=== PATIENT | female | born 1990 | race Hispanic/Latino ===

== ENCOUNTER 2017-02-03 09:56 | Emergency (ER) | payer OTHER ==
[2017-02-03 10:03] VITALS: BP 145/91; PULSE 90; RESP 16; TEMP 98.6; O2SAT 100
--- NOTE | 2017-02-03 10:36 | C.PDOC ---
History Of Present Illness 26 yr old female presents to the ER s/p needle stick. 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 Patient denies fever, chills, nausea, vomiting, weakness or numbness. Time Seen by Provider: 02/03/17 10:08 Chief Complaint (Nursing): Needle Stick History Per: Patient History/Exam Limitations: no limitations Onset/Duration Of Symptoms: Sudden Onset (MANAGED CARE LIAISON) Past Medical History Reviewed: Historical Data, Nursing Documentation, Vital Signs Vital Signs: Last Vital Signs Temp 98.6 F 02/03/17 10:00 Pulse 90 02/03/17 10:00 Resp 16 02/03/17 10:00 BP 145/91 H 02/03/17 10:00 Pulse Ox 100 02/03/17 13:09 Family History: States: No Known Family Hx - Social History Hx Alcohol Use: Yes Hx Substance Use: No - Immunization History Hx Tetanus Toxoid Vaccination: Yes Review Of Systems Except As Marked, All Systems Reviewed And Found Negative. Constitutional: Negative for: Fever, Chills Gastrointestinal: Negative for: Nausea, Vomiting Neurological: Negative for: Weakness, Numbness Physical Exam - Physical Exam Appears: Non-toxic Skin: Normal Color, Warm, Dry Head: Atraumatic, Normacephalic Chest: Symmetrical, No Tenderness Cardiovascular: Rhythm Regular, No Murmur Respiratory: Normal Breath Sounds, No Rales, No Rhonchi, No Stridor, No Wheezing Extremity: Normal ROM, No Swelling Neurological/Psych: Oriented x3, Normal Speech, Normal Motor ED Course And Treatment - Laboratory Results Result Diagrams: 02/03/17 10:55 02/03/17 10:55 O2 Sat by Pulse Oximetry: 100 (RA) Pulse Ox Interpretation: Normal Progress Note: Source patient is being tested. Patient is UTD on tetanus. Refuses PEP kit at this time. Medical Decision Making Medical Decision Making: PLAN: * Hepatitis Panel * HIV Antibody * CBC * CMP * HCG * Urinalysis Disposition - Disposition Disposition: HOME/ ROUTINE Disposition Time: 10:40 Condition: GOOD Additional Instructions: Thank you for letting us take care of you today. Your provider was Dr. Johnson. You were treated for a needle stick. The emergency medical care you received today was directed at your acute symptoms. If you were prescribed any medication, please fill it and take as directed. It may take several days for your symptoms to resolve. Return to the Emergency Department if your symptoms worsen, do not improve, or if you have any other problems. Please contact your doctor or call one of the physicians/clinics you have been referred to that are listed on the Patient Visit Information form that is included in your discharge packet. Bring any paperwork you were given at discharge with you along with any medications you are taking to your follow up visit. Our treatment cannot replace ongoing medical care by a primary care provider (PCP) outside of the emergency department. Thank you for allowing the [facility] team to be part of your care today. Come to the emergency room if you change your mind about post-exposure prophylaxis. Follow up in [facility] tomorrow morning. Instructions: Needle Stick Injuries (ED) Forms: [employer] (Vincentian) - Clinical Impression Clinical Impression: Needle stick injury - Scribe Statement The provider has reviewed the documentation as recorded by the Prakeribe Henrietta Rubio Provider Attestation: All medical record entries made by the Scribe were at my direction and personally dictated by me. I have reviewed the chart and agree that the record accurately reflects my personal performance of the history, physical exam, medical decision making, and the department course for this patient. I have also personally directed, reviewed, and agree with the discharge instructions and disposition.
[2017-02-03 11:04] LABS: BASO # 0.1 K/uL (0.0-0.2); BASO % 0.7 % (0.0-2.0); EOS # 0.2 K/uL (0.0-0.7); EOS % 1.9 % (0.0-4.0); HEMATOCRIT 41.5 % (34.0-47.0); LYMPH # 2.2 K/uL (1.0-4.3); LYMPH % 27.1 % (20.0-40.0); MEAN CELL VOLUME 87.1 fL (81.0-99.0); MEAN CORPUSCULAR HEMOGLOBIN 29.3 pg (27.0-31.0); MEAN CORPUSCULAR HGB CONC 33.7 g/dL (33.0-37.0); MEAN PLATELET VOLUME 10.1 fL (7.2-11.7); MONO # 0.6 K/uL (0.0-0.8); MONO % 7.2 % (0.0-10.0); RED CELL DISTRIBUTION WIDTH 12.8 % (11.5-14.5)
[2017-02-03 11:11] LABS: RBC URINE < 1 /hpf (0-3); URINE BILIRUBIN NEGATIVE (NEGATIVE); URINE BLOOD NEGATIVE (NEGATIVE); URINE COLOR Yellow (YELLOW); URINE GLUCOSE (UA) NORMAL (Normal); URINE KETONE NEGATIVE (NEGATIVE); URINE LEUKOCYTE ESTERASE NEG Leu/uL (Negative); URINE PROTEIN NEGATIVE (NEGATIVE); URINE UROBILINOGEN NORMAL mg/dL (0.2-1.0); WBC URINE < 1 /hpf (0-5)
[2017-02-03 11:19] LABS: CHLORIDE 100 mmol/L (98-107); POTASSIUM 4.2 mmol/L (3.6-5.2); SODIUM 139 mmol/L (132-148)
[2017-02-03 11:21] LABS: AMYLASE 59 U/L (30-110); CARBON DIOXIDE 22 mmol/L (22-30); GFR AFRICAN-AMERICAN > 60
[2017-02-03 11:22] LABS: ALB/GLOB RATIO 1.2 (1.0-2.1); ALKALINE PHOSPHATASE 133 U/L (38-126); ALT/SGPT 32 U/L (9-52); AST/SGOT 23 U/L (14-36); BILIRUBIN,TOTAL 0.5 mg/dL (0.2-1.3); BLOOD UREA NITROGEN 10 mg/dL (7-17); CALCIUM 9.2 mg/dl (8.6-10.4); GLUCOSE,RANDOM 82 mg/dL (65-105); TOTAL PROTEIN 8.3 g/dL (6.3-8.3)
== END 2017-02-03 11:41 | disposition home or self-care (01) ==
LOC: C.ER 09:56
DX: S61.432A Puncture wound without foreign body of left hand, initial encounter (principal); W46.0XXA Contact with hypodermic needle, initial encounter; Y93.89 Activity, other specified; Y92.239 Unspecified place in hospital as the place of occurrence of the external cause; Y99.0 Civilian activity done for income or pay

== ENCOUNTER 2017-10-27 09:38 | Emergency (ER) | payer OTHER ==
[2017-10-27 09:57] VITALS: BP 116/72; PULSE 78; RESP 16; TEMP 98.1; O2SAT 99
--- NOTE | 2017-10-27 10:05 | C.PDOC ---
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 PS INJECTED PATIENT UPSTAIRS, THEN ACCID NEEDLE WENT UNDER R 2ND FINGERNAIL. CO MILD PAIN TO AREA. NO DOCUMENTED HIV OR HEP STATUS OF INPT. DENIES OTHER ASSOC SX/INJURY EXAM NAD EXT R HAND: +1 CM LINEAR SUBUNGUAL HEMORRHAGE 2ND FINGER. NAIL INTACT. NO FINGER DEFORM. NEURO NO FOCAL DEF REMAINDER NEG PT: [id number] Time Seen by Provider: 10/27/17 09:58 Chief Complaint (Nursing): Needle Stick History Per: Patient History/Exam Limitations: no limitations Current Symptoms Are (Timing): Still Present Past Medical History Reviewed: Historical Data, Nursing Documentation, Vital Signs Vital Signs: Last Vital Signs Temp 98.1 F 10/27/17 09:43 Pulse 78 10/27/17 09:43 Resp 16 10/27/17 09:43 BP 116/72 10/27/17 09:43 Pulse Ox 99 10/27/17 10:07 Family History: States: No Known Family Hx - Social History Hx Alcohol Use: Yes Hx Substance Use: No - Immunization History Hx Tetanus Toxoid Vaccination: Yes Review Of Systems Constitutional: Negative for: Chills, Malaise Respiratory: Negative for: Cough, Shortness of Breath Gastrointestinal: Negative for: Vomiting Skin: Negative for: Rash Neurological: Negative for: Weakness, Numbness Physical Exam - Physical Exam Appears: Well, Non-toxic, No Acute Distress Skin: Other (+1 CM LINEAR SUBUNGUAL HEMORRHAGE 2ND FINGER. NAIL INTACT. NO FINGER DEFORM. ) Head: Atraumatic Eye(s): bilateral: Normal Inspection Nose: Normal Lips: Normal Appearing Neck: Normal ROM Respiratory: No Accessory Muscle Use (NO ACUTE RESPIRATORY DISTRESS) Extremity: No Deformity, No Swelling Neurological/Psych: Oriented x3, Normal Speech ED Course And Treatment - Laboratory Results Result Diagrams: 10/27/17 10:26 O2 Sat by Pulse Oximetry: 99 (RA) Pulse Ox Interpretation: Normal Medical Decision Making Medical Decision Making: RISKS/BENEFITS HIV PROPH D/W PT. PS WILL DEFER PROPH PENDING HIV TEST FROM INPT. Disposition Counseled Patient/Family Regarding: Studies Performed, Diagnosis, Need For Followup, Rx Given - Disposition Referrals: [facility] [Provider Group] Disposition: HOME/ ROUTINE Disposition Time: 10:05 Condition: IMPROVED Prescriptions: Amoxicillin/Clavulanate [Augmentin 500 MG-125 MG] 1 tab PO BID #14 tab Instructions: Wound Care (DC) Forms: [employer] (Urdu) - Clinical Impression Clinical Impression: Needle stick injury - Scribe Statement The provider has reviewed the documentation as recorded by the Scribe (Alfreda Granger) All medical record entries made by the Scribe were at my direction and personally dictated by me. I have reviewed the chart and agree that the record accurately reflects my personal performance of the history, physical exam, medical decision making, and the department course for this patient. I have also personally directed, reviewed, and agree with the discharge instructions and disposition.
[2017-10-27] MEDS ORDERED: Amoxicillin-Clav 500-125 mg Tab PO STA (10:07)
[2017-10-27] MEDS ORDERED: Bacitracin 500 Units/gm Oint Foilpak UD ONE (10:14)
[2017-10-27] MEDS ORDERED: Amoxicillin-Clav 875-125 mg Tab PO ONE (10:14)
[2017-10-27 10:31] LABS: BASO % 0.6 % (0.0-2.0); EOS # 0.1 K/uL (0.0-0.7); EOS % 1.4 % (0.0-4.0); LYMPH # 1.9 K/uL (1.0-4.3); LYMPH % 27.2 % (20.0-40.0); MEAN CELL VOLUME 86.4 fL (81.0-99.0); MEAN CORPUSCULAR HEMOGLOBIN 29.4 pg (27.0-31.0); MEAN PLATELET VOLUME 9.4 fL (7.2-11.7); MONO # 0.5 K/uL (0.0-0.8); MONO % 7.2 % (0.0-10.0); NEUT # 4.3 K/uL (1.8-7.0); NEUT % 63.6 % (50.0-75.0); RBC 4.42 Mil/uL (3.80-5.20); RED CELL DISTRIBUTION WIDTH 12.9 % (11.5-14.5); WHITE BLOOD COUNT 6.8 K/uL (4.8-10.8)
[2017-10-27 10:48] LABS: ALB/GLOB RATIO 1.2 (1.0-2.1); ALBUMIN 4.2 g/dL (3.5-5.0); ALT/SGPT 43 U/L (9-52); AMYLASE 49 U/L (30-110); AST/SGOT 30 U/L (14-36); BLOOD UREA NITROGEN 9 mg/dL (7-17); CALCIUM 9.2 mg/dl (8.6-10.4); GFR AFRICAN-AMERICAN > 60; GFR NON-AFRICAN AMERICAN > 60
[2017-10-27 11:20] LABS: HEPATITIS B SURFACE AG Negative (NEGATIVE)
[2017-10-27 11:26] LABS: HEPATITIS A IGM NEGATIVE (NEGATIVE); HEPATITIS B CORE AB NEGATIVE (NEGATIVE)
[2017-10-27 11:38] LABS: HEPATITIS C ANTIBODY NEGATIVE (NEGATIVE)
== END 2017-10-27 10:15 | disposition home or self-care (01) ==
LOC: C.ER 09:38
DX: S61.230A Puncture wound without foreign body of right index finger without damage to nail, initial encounter (principal); W46.0XXA Contact with hypodermic needle, initial encounter; Y92.238 Other place in hospital as the place of occurrence of the external cause; Y99.0 Civilian activity done for income or pay